=== PATIENT | female | born 1935 | race Caucasian/White ===

== ENCOUNTER 2021-02-18 14:50 | Observation (INO) ==
[2021-02-18] MEDS ORDERED: hydrALAZINE 20 mg/ml 1 ML Vial IV IV SLOW PU ONE (15:52)
[2021-02-18 16:08] LABS: Urine Appearance Cloudy; Urine Bilirubin Negative (Negative); Urine Blood 1+ (Negative); Urine Color Yellow; Urine Glucose 1+(50 mg/dL) (Negative); Urine Ketones Negative (Negative); Urine Nitrite Negative (Negative); Urine Protein 3+(>=500 mg/dL) (Negative); Urine Specific Gravity 1.012 (1.010-1.030); Urine Urobilinogen Negative (Negative)
[2021-02-18 16:10] LABS: Urine Bacteria Absent (Absent); Urine Red Blood Cell Trace(0-2/hpf) (Absent); Urine Squamous Epithelial Cell Present (Absent); Urine White Blood Cell 2+(11-20/hpf) (Absent)
[2021-02-18 16:28] LABS: ABS Basophils 0.1 10^3/ul (0-0.2); ABS Eosinophils 0.3 10^3/ul (0-0.6); ABS Lymphocytes 2.9 10^3/ul (1.0-4.8); ABS Monocytes 0.9 10^3/ul (0-0.8); ABS Neutrophils 4.3 10^3/ul (1.5-7.7); Eosinophil % 3.4 %; Hematocrit 40 % (35-47); Hemoglobin 13.5 g/dL (12.0-16.0); Lymphocyte % 34.6 %; Mean Corpuscular HGB Conc 34 g/dL (31-36); Mean Corpuscular Hemoglobin 30 pg (27-31); Mean Corpuscular Volume 88 fL (80-97); Mean Platelet Volume 8.3 fL (7.4-10.4); Platelet Count 206 10^3/uL (150-450); Red Blood Count 4.53 10^6 /uL (3.70-4.87); Red Cell Distribution Width 14 % (10-15); White Blood Count 8.4 10^3/uL (3.5-10.8)
[2021-02-18 16:50] LABS: Troponin I 0.01 ng/mL (<0.03)
[2021-02-18 17:45] LABS: TSH Ultra Thyroid Stim Horm 1.61 mcIU/mL (0.34-5.60)
[2021-02-18 17:48] LABS: ALT 21 U/L (7-52); Albumin 3.6 g/dL (3.2-5.2); Albumin/Globulin Ratio 1.2 (1-3); Alkaline Phosphatase 68 U/L (34-104); BUN/Creatinine Ratio 39.2 (8-20); Blood Urea Nitrogen 29 mg/dL (6-24); CO2 Carbon Dioxide 25 mmol/L (22-32); Calcium 9.1 mg/dL (8.6-10.3); Chloride 103 mmol/L (101-111); EGFR African American 90.7 (>60); Globulin 3.1 g/dL (2-4); Glucose 118 mg/dL (70-100); Sodium 137 mmol/L (135-145); Total Protein 6.7 g/dL (6.4-8.9)
[2021-02-18] MEDS ORDERED: Dextrose 50% Syringe 50 ml 25 GM/50 ML SYRINGE IV PUSH PRN (18:30)
[2021-02-18 18:33] LABS: Anion Gap 9 mmol/L (2-11)
[2021-02-18] MEDS: Enoxaparin 40 MG/0.4 ML SYR SUBCUT SCH ×2 (21:20→21:31)
[2021-02-19 07:17] LABS: Calcium 8.6 mg/dL (8.6-10.3); Potassium 4.6 mmol/L (3.5-5.0)
[2021-02-19 07:22] LABS: BUN/Creatinine Ratio 29.6 (8-20); EGFR African American 81.7 (>60); EGFR Non-African American 67.5 (>60)
[2021-02-19] MEDS: Aspirin EC 81 mg TAB.EC (enteric coated) PO SCH (08:15)
[2021-02-19] MEDS: Potassium Chlor 10 meq TAB PO SCH (08:19)
[2021-02-19] MEDS: Enoxaparin 40 MG/0.4 ML SYR SUBCUT SCH (21:04)
[2021-02-20] MEDS: Aspirin EC 81 mg TAB.EC (enteric coated) PO SCH (08:33)
[2021-02-20] MEDS: Potassium Chlor 10 meq TAB PO SCH (08:33)
[2021-02-20] MEDS: Enoxaparin 40 MG/0.4 ML SYR SUBCUT SCH (21:38)
[2021-02-21] MEDS ORDERED: Enoxaparin 40 MG/0.4 ML SYR SUBCUT SCH (06:30)
[2021-02-21 07:51] VITALS: BP 134/48
[2021-02-21] MEDS: Aspirin EC 81 mg TAB.EC (enteric coated) PO SCH (10:00)
[2021-02-21] MEDS: Potassium Chlor 10 meq TAB PO SCH (10:00)
== END 2021-02-21 14:25 ==
LOC: ED 14:50 → MED 14:50
PROVIDERS: ADMIT Student in an Organized Health Care Education/Training Program; ATTEND Internal Medicine

== ENCOUNTER 2024-03-17 08:35 | Inpatient (IN) ==
[2024-03-17 11:35] LABS: ABS Lymphocytes 1.4 10^3/uL (1.0-4.8); ABS Monocytes 0.8 10^3/uL (0.0-0.9); ABS Neutrophils 15.6 10^3/uL (1.5-7.6); ABS Nucleated RBC 0.02 10^3/ul; Eosinophil % 0.2 %; Hematocrit 42.8 % (35-45); Hemoglobin 13.9 g/dL (11.5-14.3); Lymphocyte % 7.6 %; Mean Corpuscular Hemoglobin 27.7 pg (27-33); Mean Corpuscular Hgb Conc 32.5 g/dL (31-36); Mean Corpuscular Volume 85.2 fL (80-97); Mean Platelet Volume 8.9 fL (7.5-11.2); Nucleated Red Blood Cells % 0.1 %/100WBC (0.0-0.8); Platelet Count 388 10^3/uL (150-450); Red Blood Count 5.03 10^6/uL (3.63-4.92); Red Cell Distribution Width 16.9 % (12-17); White Blood Count 17.9 10^3/uL (3.8-11.8)
[2024-03-17] MEDS: Labetalol IV 5 MG/ML 20 ml VIAL IV PUSH ONE (11:37)
[2024-03-17 11:49] LABS: Magnesium 1.7 mg/dL (1.9-2.7)
[2024-03-17 11:50] LABS: Albumin 2.9 g/dL (3.2-5.2); Albumin/Globulin Ratio 0.9 (1-3); Calcium 8.1 mg/dL (8.6-10.3); Creatinine, Serum 1.09 mg/dL (0.51-0.95); Globulin 3.2 g/dL (2-4); Potassium 2.9 mmol/L (3.5-5.0); Total Bilirubin 0.6 mg/dL (0.2-1.0); Total Protein 6.1 g/dL (6.4-8.9); eGFR CKD-EPI 49.5 (>60)
[2024-03-17] MEDS: Iodixanol (CONTRAST) 320 MG/ML 100 ML SDV IV ONE (12:24)
[2024-03-17] MEDS: hydrALAZINE 20 mg/ml 1 ML Vial IV IV SLOW PU ONE (12:28)
[2024-03-17 12:32] LABS: High Sensitivity Troponin 1 Hr 89 pg/mL (<15)
[2024-03-17 12:36] LABS: Urine Appearance Clear; Urine Bacteria 1+ /HPF (Absent); Urine Bilirubin Negative (Negative); Urine Blood 1+ (Negative); Urine Color Yellow; Urine Glucose 4+ (>=1000 mg/dL) (Negative); Urine Ketones 1+ (Negative); Urine Nitrite Negative (Negative); Urine Protein 3+ (>=300 mg/dL) (Negative); Urine Red Blood Cell 1+(3-5/hpf) /HPF (0-Trace); Urine Renal Epithelial Cells Present /HPF (Absent); Urine Squamous Epithelial Cell Present /HPF (Absent); Urine Urobilinogen Negative (Negative); Urine White Blood Cell 3+(>20/hpf) /HPF (0-Trace); Urine pH 6.5 (5.0-8.0)
[2024-03-17] MEDS: Magnesium Sulfate 2 gm BAG 2 GM/50 ML BAG IVPB ONE (13:30)
[2024-03-17] MEDS: fentaNYL 100 mcg/2 ml 50 MCG/ML VIAL IV SLOW PU ONE (14:14)
[2024-03-17] MEDS: KCL 20 MEQ/100 ML IVPREMIX 20 MEQ/100 ML BAG IV SCH (14:33)
[2024-03-17 21:44] LABS: Calcium 7.9 mg/dL (8.6-10.3); Creatinine, Serum 0.98 mg/dL (0.51-0.95); Magnesium 2.4 mg/dL (1.9-2.7); Potassium 3.6 mmol/L (3.5-5.0); eGFR CKD-EPI 56.2 (>60)
[2024-03-17] MEDS: Acetaminophen IV 1 GM/100ML 1,000 MG/100 ML BAG IV PRN (22:05)
[2024-03-17] MEDS: Enoxaparin 30 MG/0.3 ML SYR SUBCUT SCH (22:10)
[2024-03-18] MEDS: Aspirin EC 81 mg TAB.EC (enteric coated) PO SCH (08:58)
[2024-03-18] MEDS: CMCS:Simvastatin 10 mg TAB (NF) PO SCH (11:21)
[2024-03-18 15:56] LABS: ABS Basophils 0.1 10^3/uL (0.0-0.1); ABS Lymphocytes 1.2 10^3/uL (1.0-4.8); ABS Monocytes 0.8 10^3/uL (0.0-0.9); ABS Neutrophils 16.6 10^3/uL (1.5-7.6); ABS Nucleated RBC 0.01 10^3/ul; Eosinophil % 0.1 %; Hemoglobin 13.1 g/dL (11.5-14.3); Lymphocyte % 6.5 %; Mean Corpuscular Hemoglobin 27.5 pg (27-33); Mean Corpuscular Hgb Conc 32.8 g/dL (31-36); Mean Corpuscular Volume 83.7 fL (80-97); Mean Platelet Volume 8.7 fL (7.5-11.2); Platelet Count 413 10^3/uL (150-450); Red Blood Count 4.78 10^6/uL (3.63-4.92); White Blood Count 18.8 10^3/uL (3.8-11.8)
[2024-03-18 17:08] LABS: Calcium 8.1 mg/dL (8.6-10.3); Creatinine, Serum 1.02 mg/dL (0.51-0.95); Magnesium 2.1 mg/dL (1.9-2.7); Potassium 3.2 mmol/L (3.5-5.0); eGFR CKD-EPI 53.6 (>60)
[2024-03-18] MEDS: Lidocaine PATCH 5% PATCH TRANSDERM SCH (17:15)
[2024-03-18] MEDS: hydrALAZINE 20 mg/ml 1 ML Vial IV IV SLOW PU PRN (22:14)
[2024-03-19 13:46] LABS: ABS Basophils 0.1 10^3/uL (0.0-0.1); ABS Eosinophils 0.1 10^3/uL (0.0-0.5); ABS Lymphocytes 1.9 10^3/uL (1.0-4.8); ABS Monocytes 0.8 10^3/uL (0.0-0.9); ABS Neutrophils 11.1 10^3/uL (1.5-7.6); ABS Nucleated RBC 0.01 10^3/ul; Eosinophil % 0.4 %; Hematocrit 41.9 % (35-45); Hemoglobin 13.8 g/dL (11.5-14.3); Lymphocyte % 13.9 %; Mean Corpuscular Hemoglobin 27.6 pg (27-33); Mean Corpuscular Hgb Conc 32.9 g/dL (31-36); Mean Corpuscular Volume 83.9 fL (80-97); Mean Platelet Volume 8.3 fL (7.5-11.2); Nucleated Red Blood Cells % 0.1 %/100WBC (0.0-0.8); Platelet Count 440 10^3/uL (150-450); Red Blood Count 4.99 10^6/uL (3.63-4.92); Red Cell Distribution Width 17.1 % (12-17)
[2024-03-19 14:21] LABS: Calcium 8.1 mg/dL (8.6-10.3); Magnesium 1.8 mg/dL (1.9-2.7); eGFR CKD-EPI 54.9 (>60)
[2024-03-19] MEDS: Potassium Chlor 20 meq TAB.ER PO ONE (15:46)
[2024-03-19] MEDS: Magnesium Sulfate 2 gm BAG 2 GM/50 ML BAG IVPB ONE (15:47)
[2024-03-19] MEDS: KCL 20 MEQ/100 ML IVPREMIX 20 MEQ/100 ML BAG IV ONE (16:49)
[2024-03-20 06:43] LABS: Hematocrit 33.9 % (35-45); Hemoglobin 11.2 g/dL (11.5-14.3); Mean Corpuscular Hemoglobin 27.5 pg (27-33); Mean Corpuscular Hgb Conc 33.1 g/dL (31-36); Mean Corpuscular Volume 83.1 fL (80-97); Mean Platelet Volume 8.5 fL (7.5-11.2); Platelet Count 300 10^3/uL (150-450); Red Blood Count 4.08 10^6/uL (3.63-4.92); Red Cell Distribution Width 17.3 % (12-17); White Blood Count 12.3 10^3/uL (3.8-11.8)
[2024-03-20 07:12] LABS: Calcium 7.1 mg/dL (8.6-10.3); Creatinine, Serum 0.86 mg/dL (0.51-0.95); Magnesium 2.1 mg/dL (1.9-2.7); Potassium 3.6 mmol/L (3.5-5.0); eGFR CKD-EPI 65.8 (>60)
[2024-03-20] MEDS: Potassium Chlor 20 meq TAB.ER PO ONE (08:53)
[2024-03-20] MEDS: hydrALAZINE 20 mg/ml 1 ML Vial IV IV SLOW PU ONE (10:44)
[2024-03-21] MEDS: KCL 20 MEQ/100 ML IVPREMIX 20 MEQ/100 ML BAG IV SCH (09:02)
[2024-03-21] MEDS: Potassium Chlor 20 meq TAB.ER PO ONE (13:14)
[2024-03-21 18:32] LABS: Osmolality Serum 269 mOsm/kg (275-295)
[2024-03-22 00:42] LABS: TSH Ultra Thyroid Stim Horm 1.53 mcIU/mL (0.34-5.60)
[2024-03-22] MEDS ORDERED: Senna TAB 8.6 mg TAB PO PRN (10:33)
[2024-03-22] MEDS: Senna TAB 8.6 mg TAB PO SCH (11:42)
[2024-03-22 13:27] LABS: Calcium 7.5 mg/dL (8.6-10.3); Creatinine, Serum 0.99 mg/dL (0.51-0.95); Magnesium 1.9 mg/dL (1.9-2.7); Potassium 4.6 mmol/L (3.5-5.0); eGFR CKD-EPI 55.5 (>60)
[2024-03-22 13:42] LABS: Hematocrit 36.9 % (35-45); Hemoglobin 12.2 g/dL (11.5-14.3); Mean Corpuscular Hemoglobin 27.9 pg (27-33); Mean Corpuscular Hgb Conc 33.1 g/dL (31-36); Mean Corpuscular Volume 84.3 fL (80-97); Mean Platelet Volume 8.7 fL (7.5-11.2); Platelet Count 338 10^3/uL (150-450); Red Blood Count 4.38 10^6/uL (3.63-4.92); Red Cell Distribution Width 17.1 % (12-17); White Blood Count 10.3 10^3/uL (3.8-11.8)
[2024-03-22] MEDS: Mineral Oil ENEMA 118 ML/BOTTLE BOTTLE PR ONE (15:01)
[2024-03-23 06:58] LABS: Calcium 7.7 mg/dL (8.6-10.3); Creatinine, Serum 1.02 mg/dL (0.51-0.95); Potassium 4.6 mmol/L (3.5-5.0); eGFR CKD-EPI 53.6 (>60)
[2024-03-23 09:42] LABS: Magnesium 1.9 mg/dL (1.9-2.7)
[2024-03-23] MEDS: Magnesium Sulfate IV 1GM/100ML 1 GM/100 ML BAG IV ONE (15:58)
[2024-03-23] MEDS: NS 0.9% 1000 ml BAG 1,000 ML IV SCH (15:58)
[2024-03-23 18:46] LABS: Urine Osmo 277 mOsm/kg (150-1150)
[2024-03-24] MEDS ORDERED: Magnesium Hydroxide LIQ 30 ML UDC PO PRN (02:45)
[2024-03-24] MEDS: Polyethylene Glycol 3350 17 GM PACKET PO PRN (04:20)
[2024-03-24] MEDS: Magnesium Hydroxide LIQ 30 ML UDC PO SCH (08:46)
[2024-03-24 09:21] LABS: ABS Basophils 0.1 10^3/uL (0.0-0.1); ABS Eosinophils 0.2 10^3/uL (0.0-0.5); ABS Lymphocytes 2.1 10^3/uL (1.0-4.8); ABS Monocytes 0.9 10^3/uL (0.0-0.9); ABS Neutrophils 9.9 10^3/uL (1.5-7.6); ABS Nucleated RBC 0.01 10^3/ul; Eosinophil % 1.9 %; Hematocrit 35.5 % (35-45); Hemoglobin 11.4 g/dL (11.5-14.3); Lymphocyte % 15.6 %; Mean Corpuscular Hemoglobin 27.4 pg (27-33); Mean Corpuscular Volume 85.6 fL (80-97); Mean Platelet Volume 8.2 fL (7.5-11.2); Nucleated Red Blood Cells % 0.1 %/100WBC (0.0-0.8); Platelet Count 305 10^3/uL (150-450); Red Blood Count 4.15 10^6/uL (3.63-4.92); Red Cell Distribution Width 17.7 % (12-17); White Blood Count 13.1 10^3/uL (3.8-11.8)
[2024-03-24 09:31] LABS: Calcium 7.6 mg/dL (8.6-10.3); Creatinine, Serum 0.99 mg/dL (0.51-0.95); Magnesium 2.2 mg/dL (1.9-2.7); Potassium 4.7 mmol/L (3.5-5.0); eGFR CKD-EPI 55.5 (>60)
[2024-03-24] MEDS: Senna TAB 8.6 mg TAB PO SCH ×2 (10:05→22:01)
[2024-03-24 10:11] LABS: Phosphorus 3.8 mg/dL (2.5-5.0)
[2024-03-24] MEDS: NS 0.9% 1000 ml BAG 1,000 ML IV SCH (14:29)
[2024-03-24] MEDS ORDERED: Glycerin ADULT 2.4 gm SUPP PR PRN (15:38)
[2024-03-24] MEDS: Polyethylene Glycol 3350 17 GM PACKET PO SCH (16:43)
[2024-03-24] MEDS: Morphine ORAL CONCENTRATE 5 MG/0.25 ML ORAL.SYRIN SL PRN (16:49)
[2024-03-25] MEDS: Polyethylene Glycol 3350 17 GM PACKET PO SCH (10:22)
[2024-03-25] MEDS: Lactulose 30 ml UDC PO SCH (10:22)
[2024-03-25 14:38] VITALS: BP 100/52
== END 2024-03-25 18:30 | DRG 309 ==
LOC: ED 08:35 → EDHOLD 08:35 → MEDTELE 19:39 → SUATTDRO 03-19 14:07 → MED 03-25 00:22
PROVIDERS: ADMIT Internal Medicine; ATTEND Internal Medicine